=== PATIENT | male | born 1995 | race Hispanic/Latino ===

== ENCOUNTER 2020-05-05 18:45 | Inpatient (IN) | payer OTHER, SELFPAY ==
[~2020-05-05] VITALS: Ht 180.3 cm; Wt 142.8 kg
[2020-05-05] MEDS ORDERED: ACETAMINOPHEN EXTRA STRENGTH 500 MG TABLET ONE (19:27)
[2020-05-05] MEDS ORDERED: CEFTRIAXONE SODIUM 1 GM ONE (19:27)
[2020-05-05 20:02] LABS: ABG BASE EXCESS 0.4 mmol/L (-2.0-3.0); ABG HCO3 23.6 mmol/L (21.0-28.0); ABG PCO2 34 mmHg (35-48)
[2020-05-05 20:05] LABS: BASOPHILS % (AUTO) 0.2 % (0.0-5.0); MEAN CORPUSCULAR HEMOGLOBIN 28.6 pg (27.0-33.0); MEAN CORPUSCULAR HGB CONC 33.2 g/dL (32.0-36.0); MEAN CORPUSCULAR VOLUME 86.3 fL (79-99); MONOCYTES % (AUTO) 4.6 % (3.0-13.0); NEUTROPHILS % (AUTO) 79.6 % (40.0-77.0); PLATELET COUNT (AUTO) 255 K/uL (130-400); RED CELL DISTRIBUTION WIDTH 13.8 % (11.0-15.5)
[2020-05-05 20:06] LABS: INR 0.91 (0.85-1.15); PARTIAL THROMBOPLASTIN TIME 37.4 SEC (26.3-35.5); PROTHROMBIN TIME 9.9 SEC (9.6-11.6)
[2020-05-05 20:07] LABS: POTASSIUM 3.1 mmol/L (3.5-5.1)
[2020-05-05 20:12] LABS: ALBUMIN 2.1 g/dL (3.5-5.0); BILIRUBIN,TOTAL 0.6 mg/dL (0.2-1.0); TOTAL PROTEIN, SERUM 7.5 g/dL (6.0-8.3)
[2020-05-05] MEDS ORDERED: POTASSIUM CHLORIDE 20 MEQ ERTAB PO ONE (20:27)
[2020-05-05 20:28] LABS: HEMOGLOBIN A1C 11.8 % (4.0-6.0)
[2020-05-05] MEDS ORDERED: ONDANSETRON HCL 4 MG/2 ML VIAL IV PRN (21:30)
[2020-05-05] MEDS ORDERED: MAG HYDROX/AL HYDROX/SIMETH ES 30 ML SUSP UDCUP PO PRN (21:30)
[2020-05-05] MEDS ORDERED: DiphenhydrAMINE HCL 50 MG/ML VIAL IV PRN (21:30)
[2020-05-05] MEDS ORDERED: DIPHENHYDRAMINE HCL 25 MG CAPSULE PO PRN (21:30)
[2020-05-05] MEDS ORDERED: ZOLPIDEM TARTRATE 5 MG TAB PO PRN (21:30)
[2020-05-05] MEDS ORDERED: ACETAMINOPHEN 325 MG TAB PO PRN ×2 (21:30)
[2020-05-05] MEDS ORDERED: GUAIFENESIN-DM 200/20 MG 10 ML PO PRN (21:30)
[2020-05-05] MEDS ORDERED: LACTULOSE 20 GM/30 ML UDCUP PO PRN (21:30)
[2020-05-05] MEDS ORDERED: NITROGLYCERIN 0.4 MG SL TAB SL PRN (21:30)
[2020-05-05] MEDS ORDERED: DEXAMETHASONE SOD PHOSPHATE 4 MG/ML 5ML VIAL ONE (22:32)
[2020-05-05] MEDS ORDERED: FAMOTIDINE/PF 20 MG/2 ML VIAL IV ONE (22:33)
[2020-05-06] MEDS ORDERED: INSULIN GLARGINE 100 UNITS/ML 10 ML VIAL SQ ONE (02:15)
[2020-05-06] MEDS ORDERED: ERGOCALCIFEROL (VITAMIN D2) 50,000 UNIT CAPSULE PO ONE (03:15)
[2020-05-06] MEDS ORDERED: PHARMACY COMMUNICATION MISC SCH (03:30)
[2020-05-06] MEDS ORDERED: BENZONATATE 100 MG CAPSULE PO PRN (03:30)
[2020-05-06] MEDS ORDERED: GUAIFENESIN-DM 200/20 MG 10 ML ONE (03:39)
[2020-05-06 04:32] LABS: BASOPHILS % (AUTO) 0.1 % (0.0-5.0); HEMATOCRIT 43.2 % (42-54); LYMPHOCYTES % (AUTO) 8.5 % (21.0-51.0); MEAN CORPUSCULAR HEMOGLOBIN 28.8 pg (27.0-33.0); MEAN CORPUSCULAR HGB CONC 33.1 g/dL (32.0-36.0); MEAN CORPUSCULAR VOLUME 86.9 fL (79-99); MONOCYTES % (AUTO) 3.4 % (3.0-13.0); NEUTROPHILS % (AUTO) 87.5 % (40.0-77.0); PLATELET COUNT (AUTO) 265 K/uL (130-400); RED BLOOD CELL COUNT(AUTO) 4.97 MIL/uL (4.50-6.20); RED CELL DISTRIBUTION WIDTH 13.8 % (11.0-15.5); WHITE BLOOD COUNT (AUTO) 11.4 K/uL (4.8-10.8)
[2020-05-06 05:09] LABS: ALBUMIN 2.1 g/dL (3.5-5.0); BILIRUBIN,TOTAL 0.5 mg/dL (0.2-1.0); POTASSIUM 4.1 mmol/L (3.5-5.1); TOTAL PROTEIN, SERUM 7.9 g/dL (6.0-8.3)
[2020-05-06 05:55] LABS: CRP QUANTITATIVE 265.2 mg/L (0.00-9.0)
[2020-05-06] MEDS: INSULIN HUMULIN R 100 UNIT/ML 3ML SQ SCH ×7 (07:30→20:25)
[2020-05-06] MEDS ORDERED: AZITHROMYCIN 500MG+NS 250ML 250 ML IV SCH (07:45)
[2020-05-06] MEDS ORDERED: DOXYCYCLINE 100MG+NS 250ML 250 ML IV SCH (07:45)
[2020-05-06] MEDS ORDERED: ASCORBIC ACID 500 MG TAB ONE (08:05)
[2020-05-06] MEDS ORDERED: DEXAMETHASONE SOD PHOSPHATE 4 MG/ML 1ML VIAL ONE (08:05)
[2020-05-06] MEDS ORDERED: ZINC SULFATE 220 CAPSULE ONE (08:06)
[2020-05-06] MEDS ORDERED: FAMOTIDINE/PF 20 MG/2 ML VIAL IV ONE (08:07)
[2020-05-06] MEDS ORDERED: INSULIN HUMULIN R 100 UNIT/ML 3ML ONE ×2 (08:08→12:39)
[2020-05-06] MEDS ORDERED: AZITHROMYCIN 500MG+NS 250ML 250 ML IV ONE (08:39)
[2020-05-06] MEDS ORDERED: DOXYCYCLINE 100MG+NS 250ML 250 ML IV ONE (08:39)
[2020-05-06] MEDS: CEFTRIAXONE SODIUM 1 GM IVP SCH ×2 (08:45→20:24)
[2020-05-06] MEDS: DEXAMETHASONE SOD PHOSPHATE 4 MG/ML 1ML VIAL IVP SCH (09:00)
[2020-05-06] MEDS ORDERED: DEXAMETHASONE 10MG/ML 1ML VIAL 6 MG in SODIUM CHLORIDE 0.9% 50 ML IV SCH (09:00)
[2020-05-06] MEDS: ZINC SULFATE 220 CAPSULE PO SCH (09:00)
[2020-05-06] MEDS: FAMOTIDINE/PF 20 MG/2 ML VIAL IV SCH ×2 (09:00→20:24)
[2020-05-06] MEDS: DOXYCYCLINE HYCLATE 100 MG TABLET PO SCH ×2 (09:00→20:23)
[2020-05-06] MEDS: ASCORBIC ACID 500 MG TAB PO SCH (09:00)
[2020-05-06] MEDS: ENOXAPARIN SODIUM 40 MG/0.4 ML SYRINGE SQ SCH (09:00)
[2020-05-06] MEDS ORDERED: REMDESIVIR (EUA) 520 200 MG in SODIUM CHLORIDE 0.9% 250 ML IV ONE (14:00)
[2020-05-06] MEDS ORDERED: COMPOUND IV REFRIGERATED 1 EACH IVSOLN MISC PRN (14:00)
[2020-05-06] MEDS ORDERED: ENOXAPARIN SODIUM 80 MG/0.8 ML SQ ONE (17:27)
[2020-05-06] MEDS ORDERED: CEFTRIAXONE SODIUM 1 GM ONE (17:28)
--- NOTE | 2020-05-06 17:37 | NUR ---
cm note unable to reach pt, call made to listed contact mother florian logan, states pt resides at home with her, and is independent with ambulation and adls. no dme. 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 provided community resource information regarding clinics and meds assistance. verbalizes understanding. states no dc needs. Addendum: 05/06/20 at 1741 by LUIS M DOMINGO Amended: Links added.
[2020-05-06 20:38] VITALS: BP 127/78
[2020-05-06] MEDS ORDERED: INSULIN GLARGINE 100 UNITS/ML 10 ML VIAL SQ SCH ×2 (21:00)
[2020-05-06 23:58] VITALS: BP 125/76
[2020-05-07 03:41] VITALS: BP 118/69
[2020-05-07] MEDS: PHARMACY COMMUNICATION MISC SCH (06:00)
[2020-05-07 06:23] LABS: ALBUMIN 1.9 g/dL (3.5-5.0); BILIRUBIN,TOTAL 0.3 mg/dL (0.2-1.0); CREATININE 0.9 mg/dL (0.5-1.5); POTASSIUM 3.7 mmol/L (3.5-5.1); TOTAL PROTEIN, SERUM 7.1 g/dL (6.0-8.3)
[2020-05-07] MEDS: INSULIN HUMULIN R 100 UNIT/ML 3ML SQ SCH ×7 (06:36→22:40)
[2020-05-07 06:37] LABS: BASOPHILS % (AUTO) 0.1 % (0.0-5.0); HEMATOCRIT 39.8 % (42-54); LYMPHOCYTES % (AUTO) 12.4 % (21.0-51.0); MEAN CORPUSCULAR HEMOGLOBIN 28.9 pg (27.0-33.0); MEAN CORPUSCULAR HGB CONC 32.9 g/dL (32.0-36.0); MEAN CORPUSCULAR VOLUME 87.9 fL (79-99); NEUTROPHILS % (AUTO) 80.8 % (40.0-77.0); PLATELET COUNT (AUTO) 339 K/uL (130-400); RED BLOOD CELL COUNT(AUTO) 4.53 MIL/uL (4.50-6.20); RED CELL DISTRIBUTION WIDTH 13.6 % (11.0-15.5); WHITE BLOOD COUNT (AUTO) 12.2 K/uL (4.8-10.8)
[2020-05-07 08:33] VITALS: BP 117/61
[2020-05-07] MEDS: CEFTRIAXONE SODIUM 1 GM IVP SCH ×2 (08:34→21:31)
[2020-05-07] MEDS: FAMOTIDINE/PF 20 MG/2 ML VIAL IV SCH ×2 (08:34→21:31)
[2020-05-07] MEDS: DEXAMETHASONE SOD PHOSPHATE 4 MG/ML 1ML VIAL IVP SCH (08:34)
[2020-05-07] MEDS: ASCORBIC ACID 500 MG TAB PO SCH (08:34)
[2020-05-07] MEDS: DOXYCYCLINE HYCLATE 100 MG TABLET PO SCH ×2 (08:34→21:31)
[2020-05-07] MEDS: ZINC SULFATE 220 CAPSULE PO SCH (08:35)
[2020-05-07] MEDS: ENOXAPARIN SODIUM 40 MG/0.4 ML SYRINGE SQ SCH (08:35)
[2020-05-07 12:21] VITALS: BP 133/75
[2020-05-07] MEDS: REMDESIVIR (EUA) 520 100 MG in SODIUM CHLORIDE 0.9% 250 ML IV SCH (13:33)
[2020-05-07 15:54] VITALS: BP 115/64
[2020-05-07 20:04] VITALS: BP 114/71
[2020-05-07 23:59] VITALS: BP 111/77
[2020-05-08 04:17] VITALS: BP 115/72
[2020-05-08] MEDS: PHARMACY COMMUNICATION MISC SCH (05:56)
[2020-05-08] MEDS: INSULIN HUMULIN R 100 UNIT/ML 3ML SQ SCH ×7 (05:56→21:00)
[2020-05-08 06:07] LABS: BASOPHILS % (AUTO) 0.2 % (0.0-5.0); EOSINOPHILS % (AUTO) 0.1 % (0.0-8.0); HEMATOCRIT 36.4 % (42-54); LYMPHOCYTES % (AUTO) 22.5 % (21.0-51.0); MEAN CORPUSCULAR HEMOGLOBIN 28.8 pg (27.0-33.0); MEAN CORPUSCULAR VOLUME 87.3 fL (79-99); NEUTROPHILS % (AUTO) 69.9 % (40.0-77.0); PLATELET COUNT (AUTO) 397 K/uL (130-400); RED BLOOD CELL COUNT(AUTO) 4.17 MIL/uL (4.50-6.20); RED CELL DISTRIBUTION WIDTH 13.7 % (11.0-15.5); WHITE BLOOD COUNT (AUTO) 8.7 K/uL (4.8-10.8)
[2020-05-08 06:45] LABS: ALANINE AMINOTRANSFERASE 23 U/L (12-78); ASPARTATE AMINOTRANSFERASE 19 U/L (10-37); BILIRUBIN,TOTAL 0.2 mg/dL (0.2-1.0); CARBON DIOXIDE 25 mmol/L (21-32); CHLORIDE 104 mmol/L (101-111); CREATININE 0.8 mg/dL (0.5-1.5); GLOMERULAR FILTR. RATE CALC 123 mL/min (>60); GLUCOSE,RANDOM 129 mg/dL (70-105); LACTATE DEHYDROGENASE 227 U/L (81-234); POTASSIUM 3.3 mmol/L (3.5-5.1); SODIUM SERUM 141 mmol/L (136-145); TOTAL PROTEIN, SERUM 6.9 g/dL (6.0-8.3); UREA NITROGEN, BLOOD 16 mg/dL (7-18)
[2020-05-08] MEDS: CEFTRIAXONE SODIUM 1 GM IVP SCH ×2 (08:01→21:40)
[2020-05-08] MEDS: FAMOTIDINE/PF 20 MG/2 ML VIAL IV SCH ×2 (08:01→21:40)
[2020-05-08] MEDS: DEXAMETHASONE SOD PHOSPHATE 4 MG/ML 1ML VIAL IVP SCH (08:01)
[2020-05-08] MEDS: DOXYCYCLINE HYCLATE 100 MG TABLET PO SCH ×2 (08:01→21:40)
[2020-05-08] MEDS: ZINC SULFATE 220 CAPSULE PO SCH (08:01)
[2020-05-08] MEDS: ASCORBIC ACID 500 MG TAB PO SCH (08:01)
[2020-05-08] MEDS: ENOXAPARIN SODIUM 40 MG/0.4 ML SYRINGE SQ SCH (08:02)
[2020-05-08 08:34] VITALS: BP 116/73
[2020-05-08] MEDS ORDERED: POTASSIUM CHLORIDE 10% ELIXIR 20 MEQ/15 ML UDCUP PO PRN (10:00)
[2020-05-08] MEDS ORDERED: POTASSIUM CHLORIDE 20MEQ/100ML 100 ML IV PRN (10:00)
[2020-05-08] MEDS ORDERED: LIDOCAINE HCL-MPF 1% 2ML VIAL IV PRN (10:00)
[2020-05-08 11:54] VITALS: BP 109/66
[2020-05-08] MEDS: REMDESIVIR (EUA) 520 100 MG in SODIUM CHLORIDE 0.9% 250 ML IV SCH (12:42)
[2020-05-08] MEDS: POTASSIUM CHLORIDE 20 MEQ ERTAB PO PRN ×2 (12:48→14:34)
[2020-05-08 16:16] VITALS: BP 120/75
[2020-05-08 19:45] VITALS: BP 106/59
[2020-05-08] MEDS: INSULIN GLARGINE 100 UNITS/ML 10 ML VIAL SQ SCH (21:43)
[2020-05-08 23:45] VITALS: BP 113/66
[2020-05-09 04:20] VITALS: BP 112/63
--- NOTE | 2020-05-09 05:11 | NUR ---
NOTE PATIENT REPORTS IV HAS BECOME UNTAPED AND FALLING OFF. ON INSPECTIONS NOTED CATHETER IS OUT AND OPSITE AND TAPE ROLLED BACK/LIFTED FROM ANTECUBITAL AREA. FINISHED REMOVING DEVICE AND CLEANED SITE. ATTEMPTED TO START IV TWICE WITHOUT SUCCESS. ASKED ANOTHER NURSE AND SHE TRIED TWICE WITHOUT SUCCESS, AFTER WHICH PATIENT ASKED FOR A BREAK FROM BEING STUCK ANYMORE.
[2020-05-09] MEDS: PHARMACY COMMUNICATION MISC SCH (05:45)
[2020-05-09 06:01] LABS: BASOPHILS % (AUTO) 0.6 % (0.0-5.0); HEMATOCRIT 42.8 % (42-54); LYMPHOCYTES % (AUTO) 31.7 % (21.0-51.0); MEAN CORPUSCULAR HEMOGLOBIN 29.4 pg (27.0-33.0); MEAN CORPUSCULAR HGB CONC 33.4 g/dL (32.0-36.0); MEAN CORPUSCULAR VOLUME 88.1 fL (79-99); MONOCYTES % (AUTO) 7.5 % (3.0-13.0); NEUTROPHILS % (AUTO) 56.7 % (40.0-77.0); PLATELET COUNT (AUTO) 537 K/uL (130-400); RED BLOOD CELL COUNT(AUTO) 4.86 MIL/uL (4.50-6.20); RED CELL DISTRIBUTION WIDTH 13.6 % (11.0-15.5); WHITE BLOOD COUNT (AUTO) 9.6 K/uL (4.8-10.8)
[2020-05-09] MEDS: INSULIN HUMULIN R 100 UNIT/ML 3ML SQ SCH ×7 (06:22→20:54)
[2020-05-09 06:30] LABS: CREATININE 0.9 mg/dL (0.5-1.5); CRP QUANTITATIVE 25.1 mg/L (0.00-9.0); POTASSIUM 3.2 mmol/L (3.5-5.1)
[2020-05-09] MEDS: POTASSIUM CHLORIDE 20 MEQ ERTAB PO PRN ×2 (07:01→10:59)
[2020-05-09 07:50] LABS: ALBUMIN 2.3 g/dL (3.5-5.0); BILIRUBIN,DIRECT 0.1 mg/dL (0.0-0.3); BILIRUBIN,TOTAL 0.2 mg/dL (0.2-1.0); TOTAL PROTEIN, SERUM 7.5 g/dL (6.0-8.3)
[2020-05-09] MEDS: CEFTRIAXONE SODIUM 1 GM IVP SCH ×2 (09:05→19:19)
[2020-05-09] MEDS: DOXYCYCLINE HYCLATE 100 MG TABLET PO SCH ×2 (09:06→19:19)
[2020-05-09] MEDS: FAMOTIDINE/PF 20 MG/2 ML VIAL IV SCH ×2 (09:06→19:19)
[2020-05-09] MEDS: DEXAMETHASONE SOD PHOSPHATE 4 MG/ML 1ML VIAL IVP SCH (09:06)
[2020-05-09] MEDS: ZINC SULFATE 220 CAPSULE PO SCH (09:06)
[2020-05-09 09:14] VITALS: BP 119/71
[2020-05-09] MEDS: ASCORBIC ACID 500 MG TAB PO SCH (09:21)
[2020-05-09] MEDS: ENOXAPARIN SODIUM 40 MG/0.4 ML SYRINGE SQ SCH (09:21)
--- NOTE | 2020-05-09 10:57 | NUR ---
NUTRITION MEDICAL VIDEOGRAPHER-ASSISTED NUTRITION EDUCATION. Diabetes nutrition education faxed to 2D ([phone], 4 pages). Attempt to notify however call dropped, re-dialed and could not get through to unit. ROBYN to follow up. Addendum: 05/09/20 at [address] Amended: Links added.
--- NOTE | 2020-05-09 11:05 | NUR ---
RD NOTIFICATION Pt admitted with COVID-19 PNA. New onset Diabetes Mellitus. Pt tolerating 90gm CCD with no report of GI distress. Fair PO intake. Obesity Class III (BMI 43.5). Vitamin C, Zinc in place. Noted liquid/loose stool, poss related to antibiotics. Recommend Glucerna QD Continue 90gm CCD RN assisted nutrition education. Diabetes nutrition education faxed to 2D ([phone], [address] RD to continue to monitor. Please notify as additional nutrition concerns arise. Thank you. Addendum: 05/09/20 at [address] Amended: Links added.
[2020-05-09 12:00] VITALS: BP 115/45
[2020-05-09] MEDS: REMDESIVIR (EUA) 520 100 MG in SODIUM CHLORIDE 0.9% 250 ML IV SCH (13:19)
[2020-05-09 19:01] VITALS: BP 106/65
[2020-05-09 19:55] VITALS: BP 109/66
[2020-05-09] MEDS: INSULIN GLARGINE 100 UNITS/ML 10 ML VIAL SQ SCH (20:59)
[2020-05-09] MEDS: HYDROMORPHONE 1 MG/1 ML AMP IVP PRN ×2 (21:00→23:21)
[2020-05-09 23:30] VITALS: BP 116/71
[2020-05-10] MEDS: PHARMACY COMMUNICATION MISC SCH (00:57)
[2020-05-10] MEDS: HYDROMORPHONE 1 MG/1 ML AMP IVP PRN ×3 (01:14→05:23)
[2020-05-10 04:15] VITALS: BP 107/61
[2020-05-10] MEDS: INSULIN HUMULIN R 100 UNIT/ML 3ML SQ SCH ×8 (05:56→21:00)
[2020-05-10 06:13] LABS: BASOPHILS % (AUTO) 0.7 % (0.0-5.0); EOSINOPHILS % (AUTO) 0.1 % (0.0-8.0); HEMATOCRIT 40.7 % (42-54); LYMPHOCYTES % (AUTO) 24.5 % (21.0-51.0); MEAN CORPUSCULAR HEMOGLOBIN 28.9 pg (27.0-33.0); MEAN CORPUSCULAR HGB CONC 32.7 g/dL (32.0-36.0); MEAN CORPUSCULAR VOLUME 88.3 fL (79-99); MONOCYTES % (AUTO) 7.7 % (3.0-13.0); NEUTROPHILS % (AUTO) 62.5 % (40.0-77.0); PLATELET COUNT (AUTO) 445 K/uL (130-400); RED BLOOD CELL COUNT(AUTO) 4.61 MIL/uL (4.50-6.20); RED CELL DISTRIBUTION WIDTH 13.7 % (11.0-15.5); WHITE BLOOD COUNT (AUTO) 8.5 K/uL (4.8-10.8)
[2020-05-10 06:29] LABS: ALBUMIN 2.1 g/dL (3.5-5.0); BILIRUBIN,DIRECT 0.1 mg/dL (0.0-0.3); BILIRUBIN,TOTAL 0.2 mg/dL (0.2-1.0); CREATININE 0.9 mg/dL (0.5-1.5); CRP QUANTITATIVE 13.9 mg/L (0.00-9.0); POTASSIUM 3.4 mmol/L (3.5-5.1); TOTAL PROTEIN, SERUM 6.7 g/dL (6.0-8.3)
[2020-05-10] MEDS: POTASSIUM CHLORIDE 20 MEQ ERTAB PO PRN ×2 (06:34→08:13)
[2020-05-10 08:00] VITALS: BP 110/67
[2020-05-10] MEDS: ENOXAPARIN SODIUM 40 MG/0.4 ML SYRINGE SQ SCH (08:28)
[2020-05-10] MEDS: ASCORBIC ACID 500 MG TAB PO SCH (08:28)
[2020-05-10] MEDS: DOXYCYCLINE HYCLATE 100 MG TABLET PO SCH ×2 (08:28→22:02)
[2020-05-10] MEDS: CEFTRIAXONE SODIUM 1 GM IVP SCH ×2 (08:28→22:02)
[2020-05-10] MEDS: ZINC SULFATE 220 CAPSULE PO SCH (08:28)
[2020-05-10] MEDS: DEXAMETHASONE SOD PHOSPHATE 4 MG/ML 1ML VIAL IVP SCH (08:28)
[2020-05-10] MEDS: FAMOTIDINE/PF 20 MG/2 ML VIAL IV SCH ×2 (08:28→22:02)
[2020-05-10 12:39] VITALS: BP 96/56
[2020-05-10] MEDS: REMDESIVIR (EUA) 520 100 MG in SODIUM CHLORIDE 0.9% 250 ML IV SCH (14:07)
[2020-05-10 17:42] VITALS: BP 106/64
[2020-05-10 19:50] VITALS: BP 104/61
[2020-05-10] MEDS ORDERED: INSULIN GLARGINE 100 UNITS/ML 10 ML VIAL SQ SCH (21:00)
[2020-05-10 23:15] VITALS: BP 106/69
[2020-05-11 04:47] VITALS: BP 99/48
[2020-05-11 05:28] LABS: BASOPHILS % (AUTO) 0.6 % (0.0-5.0); EOSINOPHILS % (AUTO) 0.3 % (0.0-8.0); HEMATOCRIT 40.7 % (42-54); LYMPHOCYTES % (AUTO) 30.4 % (21.0-51.0); MEAN CORPUSCULAR HEMOGLOBIN 28.7 pg (27.0-33.0); MEAN CORPUSCULAR HGB CONC 32.7 g/dL (32.0-36.0); MEAN CORPUSCULAR VOLUME 87.9 fL (79-99); MONOCYTES % (AUTO) 7.9 % (3.0-13.0); NEUTROPHILS % (AUTO) 54.9 % (40.0-77.0); PLATELET COUNT (AUTO) 487 K/uL (130-400); RED BLOOD CELL COUNT(AUTO) 4.63 MIL/uL (4.50-6.20); RED CELL DISTRIBUTION WIDTH 13.9 % (11.0-15.5); WHITE BLOOD COUNT (AUTO) 8.9 K/uL (4.8-10.8)
[2020-05-11 05:47] LABS: CREATININE 0.9 mg/dL (0.5-1.5); CRP QUANTITATIVE 7.4 mg/L (0.00-9.0); POTASSIUM 3.5 mmol/L (3.5-5.1)
[2020-05-11] MEDS: PHARMACY COMMUNICATION MISC SCH (06:29)
[2020-05-11] MEDS: INSULIN HUMULIN R 100 UNIT/ML 3ML SQ SCH ×7 (06:43→20:52)
[2020-05-11] MEDS ORDERED: INSULIN HUMULIN R 100 UNIT/ML 3ML SQ SCH (07:30)
[2020-05-11] MEDS: CEFTRIAXONE SODIUM 1 GM IVP SCH ×2 (07:49→20:51)
[2020-05-11] MEDS: DOXYCYCLINE HYCLATE 100 MG TABLET PO SCH ×2 (07:50→20:51)
[2020-05-11] MEDS: FAMOTIDINE/PF 20 MG/2 ML VIAL IV SCH ×2 (07:50→20:51)
[2020-05-11] MEDS: ASCORBIC ACID 500 MG TAB PO SCH (07:50)
[2020-05-11] MEDS: DEXAMETHASONE SOD PHOSPHATE 4 MG/ML 1ML VIAL IVP SCH (07:51)
[2020-05-11] MEDS: ZINC SULFATE 220 CAPSULE PO SCH (07:51)
[2020-05-11] MEDS: ENOXAPARIN SODIUM 40 MG/0.4 ML SYRINGE SQ SCH (07:51)
[2020-05-11 08:21] VITALS: BP 97/60
[2020-05-11 11:46] VITALS: BP 85/50
[2020-05-11 15:32] VITALS: BP 110/69
[2020-05-11 19:24] VITALS: BP 101/60
[2020-05-11] MEDS ORDERED: INSULIN GLARGINE 100 UNITS/ML 10 ML VIAL SQ SCH (21:00)
[2020-05-11 23:01] VITALS: BP 101/57
[2020-05-12 03:31] VITALS: BP 111/54
[2020-05-12 06:35] LABS: CRP QUANTITATIVE 5.8 mg/L (0.00-9.0)
[2020-05-12] MEDS: INSULIN HUMULIN R 100 UNIT/ML 3ML SQ SCH ×7 (06:53→21:00)
[2020-05-12 08:00] VITALS: BP 101/58
[2020-05-12 11:00] VITALS: BP 86/44
[2020-05-12] MEDS: CEFTRIAXONE SODIUM 1 GM IVP SCH ×2 (11:10→20:45)
[2020-05-12] MEDS: FAMOTIDINE/PF 20 MG/2 ML VIAL IV SCH ×2 (11:10→22:48)
[2020-05-12] MEDS: ZINC SULFATE 220 CAPSULE PO SCH (11:10)
[2020-05-12] MEDS: ASCORBIC ACID 500 MG TAB PO SCH (11:10)
[2020-05-12] MEDS: DOXYCYCLINE HYCLATE 100 MG TABLET PO SCH ×2 (11:12→22:48)
[2020-05-12] MEDS: ENOXAPARIN SODIUM 40 MG/0.4 ML SYRINGE SQ SCH (11:13)
--- NOTE | 2020-05-12 13:10 | NUR ---
DC PLAN GAVE PACKET FOR [facility]. HAD NURSE EXPLAIN THAT I WOULD BE CALLING AND EXPLAINING INFO. CALLED PATIENT ROOM. PATIENT HAD PHONE DID NOT ANSWER. YADIEL HEAD NO. LET NURSE KNOW. Addendum: 05/12/20 at 1311 by ELAINE LATHAM RN CM Amended: Links added.
[2020-05-12 15:30] VITALS: BP 127/48
[2020-05-12 19:55] VITALS: BP 88/47
[2020-05-12] MEDS ORDERED: INSULIN GLARGINE 100 UNITS/ML 10 ML VIAL SQ SCH (21:00)
[2020-05-12 23:30] VITALS: BP 91/51
[2020-05-13 04:40] VITALS: BP 90/53
[2020-05-13 06:31] LABS: LACTATE DEHYDROGENASE 160 U/L (81-234)
[2020-05-13] MEDS: INSULIN HUMULIN R 100 UNIT/ML 3ML SQ SCH ×7 (06:46→21:00)
[2020-05-13 07:00] VITALS: BP 99/51
[2020-05-13] MEDS: DOXYCYCLINE HYCLATE 100 MG TABLET PO SCH (08:25)
[2020-05-13] MEDS: ENOXAPARIN SODIUM 40 MG/0.4 ML SYRINGE SQ SCH (08:25)
[2020-05-13] MEDS: FAMOTIDINE/PF 20 MG/2 ML VIAL IV SCH ×2 (08:25→21:40)
[2020-05-13] MEDS: CEFTRIAXONE SODIUM 1 GM IVP SCH (08:25)
[2020-05-13] MEDS: ZINC SULFATE 220 CAPSULE PO SCH (08:25)
[2020-05-13] MEDS: ASCORBIC ACID 500 MG TAB PO SCH (08:25)
[2020-05-13 11:00] VITALS: BP 90/43
[2020-05-13 15:00] VITALS: BP 95/55
[2020-05-13 19:50] VITALS: BP 92/50
[2020-05-13] MEDS ORDERED: INSULIN GLARGINE 100 UNITS/ML 10 ML VIAL SQ SCH (21:00)
[2020-05-13 23:15] VITALS: BP 101/54
[2020-05-14 04:20] VITALS: BP 93/47
[2020-05-14 05:26] LABS: BASOPHILS % (AUTO) 0.4 % (0.0-5.0); EOSINOPHILS % (AUTO) 0.9 % (0.0-8.0); HEMATOCRIT 40.4 % (42-54); LYMPHOCYTES % (AUTO) 33.3 % (21.0-51.0); MEAN CORPUSCULAR HEMOGLOBIN 29.2 pg (27.0-33.0); MEAN CORPUSCULAR HGB CONC 32.9 g/dL (32.0-36.0); MEAN CORPUSCULAR VOLUME 88.6 fL (79-99); MONOCYTES % (AUTO) 7.9 % (3.0-13.0); PLATELET COUNT (AUTO) 491 K/uL (130-400); RED BLOOD CELL COUNT(AUTO) 4.56 MIL/uL (4.50-6.20); RED CELL DISTRIBUTION WIDTH 14.2 % (11.0-15.5); WHITE BLOOD COUNT (AUTO) 8.1 K/uL (4.8-10.8)
[2020-05-14 05:50] LABS: ALBUMIN 2.5 g/dL (3.5-5.0); BILIRUBIN,TOTAL 0.4 mg/dL (0.2-1.0); CREATININE 0.8 mg/dL (0.5-1.5); CRP QUANTITATIVE 12.9 mg/L (0.00-9.0); POTASSIUM 3.9 mmol/L (3.5-5.1); TOTAL PROTEIN, SERUM 6.3 g/dL (6.0-8.3)
[2020-05-14] MEDS: INSULIN HUMULIN R 100 UNIT/ML 3ML SQ SCH ×7 (06:10→20:08)
[2020-05-14 07:00] VITALS: BP 104/59
[2020-05-14] MEDS: DEXAMETHASONE 4 MG TAB PO SCH (08:33)
[2020-05-14] MEDS: ASCORBIC ACID 500 MG TAB PO SCH (08:33)
[2020-05-14] MEDS: ZINC SULFATE 220 CAPSULE PO SCH (08:33)
[2020-05-14] MEDS: ENOXAPARIN SODIUM 80 MG/0.8 ML SQ SCH (08:33)
[2020-05-14] MEDS: FAMOTIDINE/PF 20 MG/2 ML VIAL IV SCH ×2 (08:34→20:26)
[2020-05-14 11:00] VITALS: BP 100/52
[2020-05-14 15:00] VITALS: BP 105/57
[2020-05-14 20:00] VITALS: BP 108/64
[2020-05-14] MEDS ORDERED: INSULIN GLARGINE 100 UNITS/ML 10 ML VIAL SQ SCH (21:00)
[2020-05-14 23:55] VITALS: BP 104/50
[2020-05-15 03:38] VITALS: BP 117/70
[2020-05-15 06:03] LABS: BASOPHILS % (AUTO) 0.1 % (0.0-5.0); EOSINOPHILS % (AUTO) 0.5 % (0.0-8.0); HEMATOCRIT 41.3 % (42-54); LYMPHOCYTES % (AUTO) 26.1 % (21.0-51.0); MEAN CORPUSCULAR HEMOGLOBIN 28.9 pg (27.0-33.0); MEAN CORPUSCULAR HGB CONC 32.7 g/dL (32.0-36.0); MEAN CORPUSCULAR VOLUME 88.4 fL (79-99); MONOCYTES % (AUTO) 7.4 % (3.0-13.0); NEUTROPHILS % (AUTO) 64.2 % (40.0-77.0); PLATELET COUNT (AUTO) 484 K/uL (130-400); RED BLOOD CELL COUNT(AUTO) 4.67 MIL/uL (4.50-6.20); RED CELL DISTRIBUTION WIDTH 13.9 % (11.0-15.5); WHITE BLOOD COUNT (AUTO) 7.8 K/uL (4.8-10.8)
[2020-05-15 06:24] LABS: ALBUMIN 2.6 g/dL (3.5-5.0); BILIRUBIN,TOTAL 0.4 mg/dL (0.2-1.0); CREATININE 0.7 mg/dL (0.5-1.5); CRP QUANTITATIVE 12.3 mg/L (0.00-9.0); POTASSIUM 3.7 mmol/L (3.5-5.1); TOTAL PROTEIN, SERUM 6.8 g/dL (6.0-8.3)
[2020-05-15 07:00] VITALS: BP 105/56
[2020-05-15] MEDS: INSULIN HUMULIN R 100 UNIT/ML 3ML SQ SCH ×2 (07:30)
--- NOTE | 2020-05-15 07:30 | NUR ---
ASSESSMENT ENCOUNTERED PT UP IN CHAIR, A&OX3, CALM COOPERATIVE AND DOES NOT APPEAR TO BE IN ANY DISTRESS NOR ANY NEURO DEFICITS PRESENT. PT DENIES PAIN, SOB, NAUSEA. PT IS AMBULATORY, GAIT STEADY AND STRONG WITH STAND BY ASSIST. CALL LIGHT WITHIN REACH.
[2020-05-15] MEDS: ZINC SULFATE 220 CAPSULE PO SCH (07:58)
[2020-05-15] MEDS: DEXAMETHASONE 4 MG TAB PO SCH (07:58)
[2020-05-15] MEDS: ASCORBIC ACID 500 MG TAB PO SCH (07:58)
[2020-05-15] MEDS: FAMOTIDINE/PF 20 MG/2 ML VIAL IV SCH (07:58)
[2020-05-15] MEDS: ENOXAPARIN SODIUM 80 MG/0.8 ML SQ SCH (07:59)
[2020-05-15] MEDS ORDERED: DEXA6TAB PO (09:40)
[2020-05-15 11:00] VITALS: BP 101/53
[2020-05-15] MEDS ORDERED: METF-446 PO (11:19)
[2020-05-15] MEDS ORDERED: INSULIN HUMULIN R 100 UNIT/ML 3ML SQ SCH (11:30)
== END 2020-05-15 13:20 | disposition home or self-care (01) | DRG 177 ==
LOC: EDH 18:45 → EDHIP 18:46 → 2DH 05-06 17:53
PROVIDERS: ADMIT Internal Medicine; ATTEND Internal Medicine
PROC: XW033E5 Introduction of Remdesivir Anti-infective into Peripheral Vein, Percutaneous Approach, New Technology Group 5 (ICD-10-PCS; principal; 2020-05-06)
PROC: XW13325 Transfusion of Convalescent Plasma (Nonautologous) into Peripheral Vein, Percutaneous Approach, New Technology Group 5 (ICD-10-PCS; 2020-05-06)
PROC: XW033E5 Introduction of Remdesivir Anti-infective into Peripheral Vein, Percutaneous Approach, New Technology Group 5 (ICD-10-PCS; 2020-05-07)
DX: U07.1 COVID-19 (principal); J12.89 Other viral pneumonia; J96.01 Acute respiratory failure with hypoxia; Z68.41 Body mass index [BMI] 40.0-44.9, adult; E87.6 Hypokalemia; E11.649 Type 2 diabetes mellitus with hypoglycemia without coma; E11.65 Type 2 diabetes mellitus with hyperglycemia; E66.01 Morbid (severe) obesity due to excess calories; Z79.4 Long term (current) use of insulin; Z83.3 Family history of diabetes mellitus; Z90.49 Acquired absence of other specified parts of digestive tract
CPT/HCPCS: 36415; 36430; 36600; 71045; 71275; 80048; 80053; 80076; 82550; 82728; 82803; 82948; 83036; 83605; 83615; 83880; 84145; 84484; 85025; 85378; 85610; 85651; 85730; 86140; 86850; 86900; 86901; 86927; 87040; 87426; 93005; 94760; G0378; J0456; J0696; J1100; J1170; J1650; J1815; J3490; J7050; J8540

== ENCOUNTER 2025-01-17 14:43 | Emergency (ER) | payer BC, OTHER ==
[~2025-01-17] VITALS: Ht 180.3 cm; Wt 148.8 kg
[~2025-01-17 14:43] MED LIST: DEXA6TAB PO; METF-446 PO
--- NOTE | 2025-01-17 15:07 | ERN ---
ED Note History of Present Illness Stated Complaint: RIGHT ANKLE PAIN Chief Complaint: Ankle Problem Time Seen by MD: 14:46 Dictation: PATIENT IS A 29-YEAR-OLD MALE HERE WITH COMPLAINTS OF HAVING PAIN FULL AMBULATION TO HIS RIGHT ANKLE HE HAS HAD FOR THE LAST 5-7 DAYS. NO FEVER NO CHILLS NO NAUSEA VOMITING. HE DENIES ANY TRAUMA. STATES HE WORKS FROM HOME AND OFTEN TIMES HE SITS ON HIS ANKLE AT HOME WHEN HE BENDS HIS LEG. NO PRIMARY CARE DOCTOR HAS NOT TAKEN ANYTHING PRIOR TO ARRIVAL FOR PAIN. DENIES HISTORY OF GOUT Allergies: Coded Allergies: No Known Drug Allergies (Verified Allergy, Severe, 01/09/16) Home Meds Active Scripts Ibuprofen (Ibuprofen 800 mg Tab) 800 Mg Tab, 800 MG PO Q8H PRN for fever or pain , #30 TAB 0 Refills Prov:CLARIBEL WATTS PRECISION GRINDER EXTERNAL 01/17/25 Metformin HCl (Metformin HCl) 1,000 Mg Tablet, 1000 MG PO BID for Type 2 Diabetes for 10 Days, #20 TAB 0 Refills Prov:TEA BEASLEY CRNA 05/15/20 Dexamethasone (Dexamethasone) 6 Mg Tablet, 6 MG PO DAILY for COVID-19 for 10 Days, #10 TAB Prov:TEA BEASLEY CRNA 05/15/20 Past Medical History RN Note Reviewed/Agreed w/PFSH: Yes Review of System Dictation CONSTITUTIONAL: NEGATIVE EXCEPT FOR HPI HEAD/FACE: NEGATIVE EXCEPT FOR HPI EENT: NEGATIVE EXCEPT FOR HPI RESPIRATORY: NEGATIVE EXCEPT FOR HPI GASTROINTESTINAL/ABDOMINAL: NEGATIVE EXCEPT FOR HPI GENITOURINARY: NEGATIVE EXCEPT FOR HPI MUSCULOSKELETAL: NEGATIVE EXCEPT FOR HPI RIGHT ANKLE PAIN INTEGUMENTARY: NEGATIVE EXCEPT FOR HPI NEUROLOGICAL/PSYCH: NEGATIVE EXCEPT FOR HPI HEMATOLOGIC/LYMPHATIC: NEGATIVE EXCEPT FOR HPI ALL SYSTEMS NEGATIVE, EXCEPT NOTED ABOVE. 13 POINT REVIEW OF SYSTEMS ASSESSED AND ALL NEGATIVE EXCEPT FOR ABOVE. Initial Vital Sign VS Vital Signs Date Time Temp Pulse Resp B/P (MAP) Pulse Ox O2 Delivery O2 Flow Rate FiO2 01/17/25 15:01 98.1 95 18 143/86 98 Room Air 0 01/17/25 17:18 21 Physical Exam Dictation VITAL SIGNS REVIEWED GENERAL APPEARANCE: ALERT, ORIENTED X 3, MILD ACUTE DISTRESS, WELL DEVELOPED, NOURISHED. OBESE HEAD AND FACE: NON-TRAUMATIC. EYES: PERRL, PINK CONJUNCTIVAS, EYELID NO TRAUMA, ANTERIOR CHAMBER WITH ARCUS SENILIS. EARS: PINNAS INTACT AND NO SIGNS OF TRAUMA OR ERYTHEMA EAR CANALS CLEAR AND NO DISCHARGE TM NO ERYTHEMA NOSE: NO DISCHARGE, NO BLEEDING. OROPHARYNX: MOUTH NORMAL, TONGUE PINK, PHARYNX CLEAR,NO ERYTHEMA, TONSILS NO EXUDATES, NO ABSCESSES NOTED, MUCOUS MEMBRANE MOIST NECK: SUPPLE, NON-TENDER, NO THYROMEGALY, NO MASSES, NO JVD, NO BRUITS BREAST:DEFERRED CHEST:NO TENDERNESS, NO CREPITUS, NO PARADOXICAL MOVEMENT, NO RETRACTIONS LUNGS:CLEAR, WELL-VENTILATED, SYMMETRIC, NO RALES, NO WHEEZING, NO RHONCHI, NO STRIDOR, GOOD BREATH SOUNDS BILATERALLY HEART: REGULAR RATE, REGULAR RHYTHM, NO MURMUR, NO GALLOPS VASCULAR: NO PERIPHERAL EDEMA, ABDOMEN: SOFT, POSITIVE BOWEL SOUNDS, NONDISTENDED, NO GUARDING, NONTENDER, NO REBOUND, NO MASSES NO HEPATOMEGALY, NO SPLENOMEGALY, NO KAUR'S SIGN, NO HERNIAS. RECTAL: DEFERRED GENITAL: DEFERRED NEUROLOGICAL: NORMAL SPEECH, MOTOR FUNCTION INTACT, SENSORY FUNCTION INTACT MUSCULOSKELETAL: NECK NONTENDER, FULL RANGE OF MOTION, BACK NONTENDER, FULL RANGE OF MOTION, EXTREMITIES: MILD RIGHT LATERAL TENDERNESS SKIN: COLOR PINK, DRY, NO TURGOR, NO RASH, NO LACERATIONS, NO ABRASIONS, NO CONTUSIONS. LYMPHATIC: DEFERRED Results (Laboratory/Radiology) Laboratory/Radiology ANKLE COMP 3VWS RT INDICATION: NON TRAUMA RIGHT ANKLE PAIN TIMES 7-10 DAYS TECHNIQUE: ANKLE COMP 3VWS RT. FINDINGS AND IMPRESSION: No displaced fracture or dislocation is seen. Correlate clinically. There is diffuse soft tissue swelling No radiopaque foreign body is identified. Labs Reviewed?: Yes ED Course ED Course Orders Procedure Category Date Status Time Posterior Ankle Splint JESS.ER 01/17/25 Complete 15:03 Ibuprofen 800 Mg Tab PHA 01/17/25 Complete (Motrin) 15:30 Dexamethasone 4mg/Ml PHA 01/17/25 Complete 1ml Vial (Dexametha 15:30 Ankle Comp 3vws Rt RAD 01/17/25 Resulted 15:03 Current Medications Medications (Trade) Dose Ordered Sig/Rebecca Route PRN Reason Start Time Stop Time Status Last Admin Dose Admin Dexamethasone Sodium Phosphate (dexaMETHasone 4MG/ML 1ML VIAL) 8 mg ONCE ONCE IM 01/17/25 15:30 01/17/25 15:31 DC 01/17/25 18:06 Ibuprofen (moTRIN) 800 mg ONCE ONCE PO 01/17/25 15:30 01/17/25 15:31 DC 01/17/25 18:06 Vital Signs Date Time Temp Pulse Resp B/P (MAP) Pulse Ox O2 Delivery O2 Flow Rate FiO2 01/17/25 17:18 98.1 85 18 138/80 98 Room Air* 0 21 01/17/25 15:01 98.1 95 18 143/86 98 Room Air 0 1640/POSTERIOR SHORT-LEG SPLINT PLACED TO RIGHT ANKLE. NEUROVASCULAR CMS INTACT POST PLACEMENT PATIENT DISCHARGED HOME WITH SPLINT AND WALKER GIVEN THE NAME OF /ORTHOPEDIC SURGEON FOR FOLLOW UP OUTPATIENT Medical Decision Making MDM MEDICAL DISCHARGE MAKING BASED ON EMPIRIC TREATMENT FOR ANKLE PAIN AND X-RAY. X-RAY DEMONSTRATES NO FRACTURE, SOFT TISSUE SWELLING ONLY. PATIENT IS SPLINTED WITH IBUPROFEN HE HAS A WALKER FROM HOME TOLD TO FOLLOW UP WITH , CALL FOR AN APPOINTMENT DX & DISP Disposition: Discharge Departure Impression: Primary Impression: Acute right ankle pain Condition: Stable Assign Patient to: Follow-up with primary care provider in 1 to 2 days. Take medications as directed here in the emergency room. Okay to continue home medications unless otherwise discussed during your visit in the emergency room today. Return to your nearest emergency room if symptoms worsen or if there is no improvement. Call 911 if you need immediate assistance. Take Tylenol or Motrin [id number] as needed and if no contraindications are present. Increase oral hydration. A wound culture or urine culture was ordered here in the emergency room department please follow-up with primary care provider and advise them to get repeat ports from our facility. If you had any Donovan wrap/splints that were applied here, please do not remove them until you see your primary care or specialty. Splint/walker/no weight-bearing until cleared by Orthopedics, call for an appointment tomorrow. Take ibuprofen every 8 hours with food for the next three days. Stop sitting on ankle and keep ankle elevated at all times. Scripts Ibuprofen (Ibuprofen 800 mg Tab) 800 Mg Tab 800 MG PO Q8H PRN for fever or pain, #30 TAB 0 Refills Prov: CLARIBEL WATTS NP 01/17/25 Referrals: SELF,REFERRAL (PCP) ILANA PERRY MD Time of Disposition: 16:42 I have reviewed the case, and I agree with, Diagnosis and Plan CLARIBEL WATTS NP Jan 17, 2025 15:07 ALEXIS DOSS DO Jan 17, 2025 18:53
--- NOTE | 2025-01-17 15:57 | HMCIMG ---
ANKLE COMP 3VWS RT INDICATION: NON TRAUMA RIGHT ANKLE PAIN TIMES 7-10 DAYS TECHNIQUE: ANKLE COMP 3VWS RT. FINDINGS AND IMPRESSION: No displaced fracture or dislocation is seen. Correlate clinically. There is diffuse soft tissue swelling No radiopaque foreign body is identified.
[2025-01-17] MEDS ORDERED: IBUP-2077 PO (16:42)
[2025-01-17 17:18] VITALS: BP 138/80; PULSE 85; RESP 18; TEMP 98.1; O2SAT 98
--- NOTE | 2025-01-17 17:28 | NUR ---
RT ANKLE SPLINT APPLIED. PT USING WALKER FROM HOME, PT TOLERATED WELL
[2025-01-17] MEDS: ibuPROFEN 800 MG TAB PO ONE (18:06)
[2025-01-17] MEDS: dexaMETHasone SOD PHOSPHATE 4 MG/ML 1ML VIAL IM ONE (18:06)
== END 2025-01-17 18:10 | disposition home or self-care (01) ==
LOC: EDH 14:43
DX: M25.571 Pain in right ankle and joints of right foot (principal); Z79.52 Long term (current) use of systemic steroids; Z79.84 Long term (current) use of oral hypoglycemic drugs
CPT/HCPCS: 99284; 29515; 73610; 96372; J1100